=== PATIENT | male | born 1960 | race Caucasian/White ===

== ENCOUNTER 2017-09-09 09:40 | Emergency (ER) | payer MEDICARE, OTHER ==
[~2017-09-09] VITALS: Ht 177.8 cm; Wt 83.0 kg
[2017-09-09] MEDS ORDERED: ONDANSETRON IV *ER 4 MG/2 ML VIAL IV ONE (10:01)
--- NOTE | 2017-09-09 10:02 | NUR ---
Patient does not want CT scans for now, MD is aware.
--- NOTE | 2017-09-09 10:06 | NUR ---
Patient is AOx4, but unable to lay still on gurney 2/2 pains for an EKG test. EKG will be done when pain is tolerable per patient.
[2017-09-09] MEDS ORDERED: IV NS 1000 ML 1,000 ML IV ONE (10:15)
[2017-09-09] MEDS ORDERED: KETOROLAC TROMETHAMINE 30 MG INJ IVP ONE (10:15)
[2017-09-09] MEDS ORDERED: MORPHINE SULFATE 2 MG/1 ML DISP.SYRIN IV ONE (10:15)
[2017-09-09 10:16] LABS: BASOPHILS # (AUTO) 0.1 K/uL (0.0-8.0); BASOPHILS % (AUTO) 0.8 % (0.0-2.0); EOSINOPHILS # (AUTO) 0.6 K/uL (0.0-0.7); EOSINOPHILS % (AUTO) 5.5 % (0.0-7.0); HEMATOCRIT 49.6 % (36.7-47.1); HEMOGLOBIN 17.1 g/dL (12.5-16.3); LYMPHOCYTES # (AUTO) 3.9 K/uL (20.0-40.0); LYMPHOCYTES % (AUTO) 34.9 % (20.5-51.5); MEAN CORPUSCULAR HEMOGLOBIN 30.4 uug (23.8-33.4); MEAN CORPUSCULAR HGB CONC 35 g/dL (32.5-36.3); MEAN CORPUSCULAR VOLUME 88.1 fL (73.0-96.2); MONOCYTES # (AUTO) 0.5 K/uL (2.0-10.0); MONOCYTES % (AUTO) 4.9 % (0.0-11.0); NEUTROPHILS # (AUTO) 6.1 K/uL (1.8-8.9); NEUTROPHILS % (AUTO) 53.9 % (38.5-71.5); PLATELET COUNT (AUTO) 278 K/uL (152-348); RED BLOOD CELL COUNT(AUTO) 5.63 MIL/uL (4.06-5.63); WHITE BLOOD COUNT (AUTO) 11.3 K/uL (3.6-10.2)
[2017-09-09] MEDS ORDERED: LANS30CA54 PO (10:20)
[2017-09-09] MEDS ORDERED: METO25TA6 PO (10:20)
[2017-09-09] MEDS ORDERED: GABA-532 PO (10:20)
[2017-09-09] MEDS ORDERED: SIMV40TA5 PO (10:20)
[2017-09-09] MEDS ORDERED: MORPHINE SULFATE 4 MG/1 ML DISP.SYRIN ONE (10:24)
[2017-09-09] MEDS ORDERED: KETOROLAC TROMETHAMINE 30 MG INJ ONE (10:24)
[2017-09-09] MEDS ORDERED: ONDANSETRON 4 MG/2 ML VIAL ONE (10:24)
[2017-09-09 10:27] LABS: POTASSIUM 4.5 mmol/L (3.5-5.1)
[2017-09-09 10:37] LABS: *BLOOD, URINE 3+ (NEGATIVE); *CLARITY,URINE CLOUDY (CLEAR); *COLOR,URINE YELLOW (YELLOW); *KETONES,URINE TRACE (NEGATIVE); *PROTEIN,URINE 2+ (NEGATIVE); *UROBILINOGEN,URINE 0.2 E.U./dl (NORMAL); LEUKOCYTE ESTERASE ,URINE NEGATIVE (NEGATIVE); NITRITE, URINE NEGATIVE (NEGATIVE); UGLUCOSE NEGATIVE (NEGATIVE)
[2017-09-09 10:39] LABS: BILIRUBIN,TOTAL 0.3 mg/dL (0.2-1.0); TOTAL PROTEIN, SERUM 8.4 g/dL (6.4-8.2)
--- NOTE | 2017-09-09 10:58 | NUR ---
Pt is resting in [place], appears comfortable, states he is pain free at this time.
[2017-09-09 11:23] LABS: *BILIRUBIN,URIN 1+ (NEGATIVE)
[2017-09-09 11:36] LABS: BACTERIA,URINE NONE SEEN /HPF (NONE SEEN); RBC,URINE TNTC /HPF (0-3); SQUAMOUS EPITHELIAL CELL,UR FEW /HPF (NONE SEEN); WBC,URINE 0-3 /HPF (0-3)
--- NOTE | 2017-09-09 12:22 | NUR ---
CAROLINA GAUTHIER TALKING TO DR. TIRADO FOR CONSULT.
--- NOTE | 2017-09-09 15:13 | NUR ---
Patient discharged to home in stable conditon. Written and verbal after care instructions given. Patient verbalizes understanding of instructions.PT WALKS IN STEADY GAIT. PT NOT DRIVING, PT ACCOMPANIED BY FRIEND. PT SAYS FEELS BETTER, DENIES ANY PAIN OR NAUSEA AT THIS TME
[2017-09-09 15:17] VITALS: BP 121/79
== END 2017-09-09 15:19 | disposition home or self-care (01) ==
LOC: ER 09:40
DX: N20.2 Calculus of kidney with calculus of ureter (principal); E78.00 Pure hypercholesterolemia, unspecified; K21.9 Gastro-esophageal reflux disease without esophagitis; N28.1 Cyst of kidney, acquired; Z87.442 Personal history of urinary calculi; Z98.890 Other specified postprocedural states
CPT/HCPCS: 36415; 70030-TC; 76700; 85025; 93005; A4663; J1885; J2270; J2405; J7030

== ENCOUNTER 2017-09-16 04:02 | Emergency (ER) | payer MEDICARE, OTHER ==
[~2017-09-16] VITALS: Ht 167.6 cm; Wt 83.0 kg
[~2017-09-16 04:02] MED LIST: GABA-532 PO; LANS30CA54 PO; METO25TA6 PO; SIMV40TA5 PO
[2017-09-16] MEDS ORDERED: IV NORMAL SALINE 1000 ML BAG IV ONE ×2 (04:15→05:15)
[2017-09-16] MEDS ORDERED: ONDANSETRON 4 MG/2 ML VIAL IV ONE ×2 (04:15→06:30)
[2017-09-16] MEDS ORDERED: HYDROMORPHONE 1 MG/1 ML DISP.SYRIN IV ONE ×2 (04:15→04:30)
[2017-09-16] MEDS ORDERED: ONDANSETRON 4 MG/2 ML VIAL ONE ×2 (04:33→06:42)
[2017-09-16] MEDS ORDERED: HYDROMORPHONE 2 MG/1 ML DISP.SYRIN ONE (04:33)
[2017-09-16 04:41] LABS: BASOPHILS # (AUTO) 0.1 K/uL (0.0-8.0); BASOPHILS % (AUTO) 0.8 % (0.0-2.0); CREATININE 1.1 mg/dL (0.6-1.3); EOSINOPHILS # (AUTO) 0.6 K/uL (0.0-0.7); EOSINOPHILS % (AUTO) 5.1 % (0.0-7.0); HEMATOCRIT 43.1 % (36.7-47.1); HEMOGLOBIN 14.8 g/dL (12.5-16.3); LYMPHOCYTES # (AUTO) 3.7 K/uL (20.0-40.0); LYMPHOCYTES % (AUTO) 30.8 % (20.5-51.5); MEAN CORPUSCULAR HEMOGLOBIN 30.2 uug (23.8-33.4); MEAN CORPUSCULAR HGB CONC 34 g/dL (32.5-36.3); MEAN CORPUSCULAR VOLUME 88.1 fL (73.0-96.2); MONOCYTES # (AUTO) 0.8 K/uL (2.0-10.0); MONOCYTES % (AUTO) 6.9 % (0.0-11.0); NEUTROPHILS # (AUTO) 6.7 K/uL (1.8-8.9); NEUTROPHILS % (AUTO) 56.4 % (38.5-71.5); PLATELET COUNT (AUTO) 243 K/uL (152-348); POTASSIUM 4.2 mmol/L (3.5-5.1); WHITE BLOOD COUNT (AUTO) 11.9 K/uL (3.6-10.2)
[2017-09-16] MEDS ORDERED: MORPHINE SULFATE 4 MG/1 ML DISP.SYRIN IV ONE (05:15)
[2017-09-16 05:28] LABS: *BILIRUBIN,URIN NEGATIVE (NEGATIVE); *BLOOD, URINE 3+ (NEGATIVE); *CLARITY,URINE SLIGHTLY CLOUDY (CLEAR); *COLOR,URINE YELLOW (YELLOW); *KETONES,URINE NEGATIVE (NEGATIVE); *PROTEIN,URINE NEGATIVE (NEGATIVE); *UROBILINOGEN,URINE 0.2 E.U./dl (NORMAL); LEUKOCYTE ESTERASE ,URINE NEGATIVE (NEGATIVE); NITRITE, URINE NEGATIVE (NEGATIVE); PH,URINE 5.5 (5.0-8.0); UGLUCOSE NEGATIVE (NEGATIVE)
[2017-09-16] MEDS ORDERED: MORPHINE SULFATE 4 MG/1 ML DISP.SYRIN ONE (05:33)
[2017-09-16 05:45] LABS: BACTERIA,URINE NONE SEEN /HPF (NONE SEEN); CALCIUM OXALATE CRYSTALS,UR MODERATE /HPF (NONE SEEN); RBC,URINE TNTC /HPF (0-3); SQUAMOUS EPITHELIAL CELL,UR FEW /HPF (NONE SEEN); WBC,URINE 0-3 /HPF (0-3)
--- NOTE | 2017-09-16 08:45 | NUR ---
IV removed. Catheter intact and site benign. Pressure and 4x4 gauze applied to site. No bleeding noted.
--- NOTE | 2017-09-16 08:51 | NUR ---
Patient discharged to home in stable conditon. Written and verbal after care instructions given. Patient verbalizes understanding of instructions.
[2017-09-16 08:52] VITALS: BP 132/70
== END 2017-09-16 08:53 | disposition home or self-care (01) ==
LOC: ER 04:03
DX: N20.2 Calculus of kidney with calculus of ureter (principal); E78.00 Pure hypercholesterolemia, unspecified; K21.9 Gastro-esophageal reflux disease without esophagitis
CPT/HCPCS: 36415; 76770; 85025; A4663; J1170; J2270; J2405; J7030